=== PATIENT | male | born 1950 | race Caucasian/White ===

== ENCOUNTER → 2016-09-25 11:55 | Outpatient (CLI) | payer MEDICARE ==
[~2016-09-25 11:55] MED LIST: BAYER CHEWABLE81 MG PO; ELIQUIS5 MG PO; INDOCIN25 MG PO; NEXIUM20 MG PO; PLAVIX75 MG PO; PRINIVIL20 MG PO; SORINE80 MG PO; TOPROL XL50 MG PO; VYVANSE20 MG PO
[2016-10-25 08:19] VITALS: BMI 27.8
== END | disposition home or self-care (01) ==
LOC: D.US 11:55
DX: R22.42 Localized swelling, mass and lump, left lower limb (principal); M79.605 Pain in left leg

== ENCOUNTER 2016-10-17 12:01 | Outpatient (CLI) | payer MEDICARE ==
[~2016-10-17] VITALS: Ht 182.9 cm; Wt 92.7 kg
--- NOTE | ~2016-10-17 | HEMODYNAMI ---
PATIENT:NORI PRATT 3RD MEDICAL RECORD: [id number] : 46 LOCATION:[facility]I ADMISSION DATE: 10/17/16 Generatedon:10/17/201614:44 Patient name: NORI PRATT Patient #: [id number] SSN: [id number] : 1950 Date of study: 10/17/2016 Page: Of Hemodynamic Procedure Report Patient Data Patient Demographics Procedure consent was obtained First Name: NORI Gender: Male Last Name: TERENCE : 1950 Middle Initial: MOLLY 3RD Age: 66 year(s) Patient #: [id number] Race: SSN: [id number] Additional ID: [id number] Contact details Address: [address] [place] [address] State: [place] City: [facility] [place] Zip code: [address] Past Medical History Allergies Allergen Reaction Date Comments Reported Other allergy 10/17/2016 Sulfa, Morphine Admission Admission Data Admission Date: 10/17/2016 Admission Time: 12:01 Arrival Date: 10/17/2016 Arrival Time: 13:30 Admit Source: Other Insurance Payor: Medicare Height (in.): 72 BSA: 2.18 (m2) Height (cm.): 182.88 BMI: 28.62 (kg/m2) Weight (lbs.): 211 Weight (kg.): 95.71 Lab Results Lab Result Date: 10/17/2016 Lab Result Time: 0:00 Biochemistry Name Units Result Min Max BUN mg/dl 23 --(----)-* 7 18 Creatinine mg/dl 1.2 --(---*)-- 0.6 1.3 CBC Name Units Result Min Max Hemoglobin g/dl 17.6 --(----)*- 13.5 17.5 Procedure Procedure Types Cath Procedure Diagnostic Procedure [facility] w/Coronaries PCI Procedure Coronary Stent Initial Procedure Description Procedure Date Procedure Date: 10/17/2016 Procedure Start Time: 14:19 Procedure End Time: 14:40 Procedure Staff Name Function Deon Franks MD Performing Physician Stephane Clifton RT Scrub Antoinette Pleitez RN Nurse Dee Morataya RT Monitor Procedure Data Cath Procedure Fluoroscopy Diagnostic fluoroscopy Total fluoroscopy Time: 3.9 time: 3.9 min min Diagnostic fluoroscopy Total fluoroscopy dose: 925 dose: 925 mGy mGy Contrast Material Contrast Material Type Amount (ml) Isovue 370 102 Entry Location Entry Primary Successful Side Size Upsize Upsize Entry Closure Succes sful Closure Location (Fr) 1 (Fr) 2 (Fr) Remarks Device Remarks Femoral Right 5 Fr 6 Fr Exoseal artery Short Estimated blood loss: 5 ml Diagnostic catheters Device Type Used For End Catheter Placement Cordis 5Fr JL 4.0 Left Coronary Catheter (MP) Angiography Cordis 5Fr 3DRC Catheter Right Coronary (MP) Angiography Cordis 5Fr Pigtail LV Angiography Catheter (MP) Procedure Complications No complications Procedure Medications Medication Administration Route Dosage Oxygen NC 2 l/min Heparin Flush Bag added to field 2 bags (1000units/500ml NS) Lidocaine 2% added to field 20 Benadryl I.V. 50 mg Versed I.V. 1 mg Fentanyl I.V. 50 mcg Fentanyl I.V. 25 mcg Heparin Bolus I.V. 9000 units Plavix P.O. 600 mg Hemodynamics Rest BSA: 2.18 (m2) HGB: 17.6 (g/dl) O2 Consumption: Estimated: 291.53 (ml/min) O2 Co nsumption indexed: Estimated:133.73 (ml/min/m) Heart Rate: 117 (bpm) Pressure Samples Time Site Value (mmHg) Purpose Heart Use Rate(bpm) 14:27 LV 99/8,20 Snapshot 119 14:27 AO 75/54(63) Pullback 104 14:27 LV 87/-1,9 Pullback 104 Gradients Valve Time Site 1 Site 2 Mean SEP/DFP Peak To Heart Use (mmHg) (sec/min) Peak Rate (mmHg) (bpm) Aortic 14:27 LV AO 15 12 12 104 87/-1,9 75/54(63) Calculations Valve P-P Mean Valve Index Valve Source Name Gradient Area Flow (cm2) Aortic 12 15 12 15 Snapshots Pre Cath Intra NCS Post Cath Vital Signs Time Heart Resp SPO2 NIBP Rhythm Pain Sedation Rate (ipm) (%) (mmHg) Status Level (bpm) 14:07:26 99 18 99 106/51(83) A-Flutter 0 (11) 10(A) , No pain 14:11:30 116 27 100 102/79(93) A-Flutter 0 (11) 10(A) , No pain 14:15:31 102 24 95 103/83(90) A-Flutter 0 (11) 10(A) , No pain 14:19:35 115 16 96 100/75(92) A-Flutter 0 (11) 9(A) , No pain 14:23:39 113 20 95 97/73(87) A-Flutter 0 (11) 9(A) , No pain 14:27:43 109 18 95 88/71(81) A-Flutter 0 (11) 9(A) , No pain 14:31:44 105 19 95 96/69(86) A-Flutter 0 (11) 9(A) , No pain 14:35:48 109 19 95 92/68(78) A-Flutter 0 (11) 9(A) , No pain 14:39:50 100 18 95 88/72(81) A-Flutter 0 (11) 10(A) , No pain 14:41:50 113 16 97 93/81(90) A-Flutter 0 (11) 10(A) , No pain Medications Time Medication Route Dose Verified Delivered Reason Notes Effectiveness by by 14:08:12 Oxygen NC 2 Deon Antoinette Per physician l/min Nehemiah Pleitez RN 14:08:20 Heparin Flush added 2 Deon Deon used for Bag to bags Nehemiah Franks MD procedure (1000units/500ml field NS) 14:08:26 Lidocaine 2% added 20ml Deon Deon used for to vial Nehemiah Franks MD procedure field 14:08:32 Benadryl I.V. 50 mg Deon Antoinette Per physician Nehemiah Pleitez RN 14:17:09 Versed I.V. 1 mg Deon Antoinette for sedation Nehemiah Pleitez RN 14:17:15 Fentanyl I.V. 50 Deon Antoinette for sedation mcg Nehemiah Pleitez RN 14:19:55 Fentanyl I.V. 25 Deon Antoinette for sedation mcg Nehemiah Pleitez RN 14:31:54 Heparin Bolus I.V. 9000 Deon Antoinette for dose units Nehemiah Pleitez RN anticoagulation verified wtih dr franks 14:41:20 Plavix P.O. 600 Deon Zelayaca for mg Nehemiah Pleitez RN antiplatelet therapy Procedure Log Time Note 13:50:21 Stephane Suit RT(R) sent for patient. Start room use. 13:52:45 Informed consent obtained and on chart 13:53:01 Admit Source: Other 13:53:12 Arrival Date: 10/17/2016 1:30:00 PM 13:53:25 Insurance Payor : Medicare 13:53:36 Patient Height : 182.88 inches 13:53:43 Patient Weight : 95.71 lbs 14:00:33 Time tracking: Regular hours 14:00:37 Plan of Care:Hemodynamics will remain stable., Cardiac rhythm will remain stable., Comfort level will be maintained., Respiratory function will remain adequate., Patient/ family verbilizes understanding of procedure., Procedure tolerated without complication., Recovers from procedure without complications.. 14:00:42 Patient received from Outpatients to [facility] 1 Alert and oriented. Tansferred to table in Supine position. 14:00:43 Warm blankets applied, and alice hugger turned on for patient comfort. 14:00:43 Correct patient and procedure confirmed by team. 14:00:44 ECG and BP/O2 sat monitors applied to patient. 14:06:17 Vital chart was started 14:08:12 Oxygen 2 l/min NC was given by Antoinette Pleitez RN; Per physician; 14:08:20 Heparin Flush Bag (1000units/500ml NS) 2 bags added to field was given by Deon Franks MD; used for procedure; 14:08:26 Lidocaine 2% 20ml vial added to field was given by Deon Franks MD; used for procedure; 14:08:32 Benadryl 50 mg I.V. was given by Antoinette Pleitez RN; Per physician; 14:09:46 Baseline sample Acquired. 14:09:50 Rhythm: atrial flutter 14:09:51 Full Disclosure recording started 14:10:10 H&P Date Dictated: 09/26/2016 Within 30 days and on chart., H&P Addendum completed by physician on day of procedure. (MUST COMPLETE FOR ALL OUTPATIENTS). 14:10:12 Pre-procedure instructions explained to patient. 14:10:12 Pre-op teaching completed and patient verbalized understanding. 14:10:13 Family in waiting room. 14:10:15 Patient NPO since Midnight. 14:10:32 Patient allergic to Other allergySulfa, Morphine 14:10:52 Is the patient allergic to Iodine/contrast media? No. 14:10:53 Was the patient premedicated? No 14:11:08 Is patient on blood thinner?No 14:11:15 Patient diabetic? No. 14:11:25 Previous problem with sedation/anesthesia? No ? 14:11:39 Snore? Yes 14:11:48 Sleep apnea? No 14:11:49 Deviated septum? No 14:11:49 Opens mouth fully? Yes 14:11:50 Sticks out tongue? Yes 14:11:52 Airway obstruction? No ? 14:11:55 Dentures? Yes ? 14:14:02 Pre procedure: right dorsailis pedis pulse 1+ Palpable, but thready & weak; easily obliterated 14:14:05 Patient pain scale 0/10 ?. 14:14:24 IV patent on arrival in left wrist with 0.9% NaCl at [facility]. 14:16:07 Lab Result : BUN 23 mg/dl 14:16:07 Lab Result : Creatinine 1.2 mg/dl 14:16:07 Lab Result : Hemoglobin 17.6 g/dl 14:16:12 Lab results completed and on chart. 14:16:16 Right groin area was prepped with chlora-prep and draped in sterile fashion 14:16:17 Alarms reviewed by R. N. 14:16:17 Sharps counted by scrub and verified by R.N. 14:16:18 Physician arrived 14:16:18 --------ALL STOP TIME OUT------ 14:16:19 Final Timeout: patient, procedure, and site verified with staff and physician. All members of the team are in agreement. 14:16:20 Right groin site verified by team. 14:16:23 Physical assessment completed. ASA score P 2 - A patient with mild systemic disease as per Deon Franks MD. 14:16:26 Sedation plan: IV Moderate Sedation Versed, Fentanyl 14:16:28 Zero performed for pressure channel P1 14:16:40 Use device set Femoral Dx 14:16:41 Acist Syringe opened to sterile field. 14:16:41 Bag Decanter opened to sterile field. 14:16:42 Cardinal Cath Pack opened to sterile field. 14:16:42 Terumo 5Fr [place] Sheath opened to sterile field. 14:16:42 St Gerardo 260cm J .035 wire opened to sterile field. 14:16:43 Acist Hand Control opened to sterile field. 14:16:44 Acist Manifold opened to sterile field. 14:16:44 Cordis Infinity 5Fr Multipack catheter opened to sterile field. 14:16:45 Tegaderm 4 x 4 opened to sterile field. 14:17:09 Versed 1 mg I.V. was given by Antoinette Pleitez RN; for sedation; 14:17:15 Fentanyl 50 mcg I.V. was given by Antoinette Pleitez RN; for sedation; 14:18:20 Procedure started. 14:19:03 Local anesthetic to right femoral artery with Lidocaine 2% by Deon Franks MD.INITIAL ACCESS ONLY 14:19:55 Fentanyl 25 mcg I.V. was given by Antoinette Pleitez RN; for sedation; 14:21:07 A 5 Fr sheath was inserted into the Right Femoral artery 14:21:34 A Cordis 5Fr JL 4.0 Catheter (MP) was advanced over the wire and used for Left Coronary Angiography. 14:22:36 LCA angiography performed. 14::39 Injector settings: Ml/sec: 3, Volume: 6, 14:23:34 Catheter removed. 14:23:39 A Cordis 5Fr 3DRC Catheter (MP) was advanced over the wire and used for Right Coronary Angiography. 14:25:06 RCA angiography performed. 14:25:10 Injector settings: Ml/sec: 3, Volume: 6, 14:25:40 Catheter removed. 14:25:46 A Cordis 5Fr Pigtail Catheter (MP) was advanced over the wire and used for LV Angiography. 14:27:14 LV hemodynamics recorded. 14:27:15 LV gram done using LONG 14:27:18 Injector settings: Ml/sec: 5, Volume: 15, 14:27:36 EF : 35 % 14:27:59 Catheter removed. 14:28:01 Proceeding to intervention. 14:28:50 Herring BMW Commerce 2 J-tip 300cm 0.014 guide wir opened to sterile field. 14:28:51 SmartPay Jieyin BasixCompak Inflation Kit opened to sterile field. 14:28:51 Terumo 6Fr [place] Sheath opened to sterile field. 14:29:00 High Pressure Extension Tubing (Nehemiah) opened to sterile field. 14:29:57 Cordis 6FR XBLAD 3.5 guide catheter opened to sterile field. 14:30:06 Sheath upsized to a 6 Fr Short. 14:30:36 6 Fr xblad 3.5 guide catheter was inserted over the wire 14:30:43 bmw wire advanced. 14:31:54 Heparin Bolus 9000 units I.V. was given by Antoinette Pleitez RN; for anticoagulation; dose verified wtih dr franks 14:31:56 Wire advanced across lesion. 14:34:53 Inflation Number: 1 A Fashion Projecttronic Integrity 2.75 X 18 stent was prepped and advanced across the Mid LAD. The stent was deployed at 16 ALIZE for 0:10 (min:sec). 14:36:22 Stent catheter was removed intact over wire. 14:36:23 Wire removed. 14:36:23 Guide catheter removed. 14:37:54 Cordis 6Fr Exoseal opened to sterile field. 14:38:07 Sheath removed intact; hemostasis achieved with Exoseal to the Right Femoral artery. 14:38:08 Procedure ended.(Physican Out) 14:39:38 Fluoroscopy time 03.90 minutes. 14:39:52 Flurop Dose total: 925 14:39:52 Fluoroscopy dose: 925 mGy 14:40:05 Contrast amount:Isovue 370 102ml. 14:40:06 Sharps counted by scrub and verified by R.N. 14:40:11 Insertion/operative site no bleeding no hematoma. 14:40:13 Post-op/insertion site Right Femoral artery dressed using a 4 x 4 and Tegaderm. 14:40:16 Post right femoral artery:stable 14:40:18 Post Procedure Pulses reassessed and unchanged 14:40:20 Post procedure rhythm: unchanged. 14:40:23 Estimated blood loss: 5 ml 14:40:24 Post procedure instruction explained to patient.Patient verbalizes understanding. 14:40:24 Patient needs reinforcement of post procedure teaching. 14:40:32 Procedure type changed to Cath procedure, Diagnostic procedure, LHC, LHC w/Coronaries, PCI procedure, Coronary Stent Initial 14:40:32 Procedure and supply charges have been captured, reviewed, submitted and are correct. 14:40:36 Procedure Complication : No complications 14:40:38 Vital chart was stopped 14:40:38 See physician's report for complete and final results. 14:40:43 Report given to Post Procedure Room. 14:40:47 Patient transfered to Post Procedure Room with Stretcher. 14:40:48 Procedure ended. 14:40:48 Full Disclosure recording stopped 14:41:00 ACC-PCI Only Patient was given prescriptions, or instructed by Deon Franks MD to start/continue the following medications upon discharge: Plavix 14:41:02 End room use (Document Last) 14:41:20 Plavix 600 mg P.O. was given by Antoinette Pleitez RN; for antiplatelet therapy; Intervention Summary Intervention Notes Time ActionType Lesion and Equipment Action# Pressure Duration Attributes Used 14:34:53 Place stent Mid LAD Medtronic 1 16 00:10 Integrity 2.75 X 18 stent Device Usage Item Name Manufacture Quantity Catalog Hospital Part Current Minimal Lot# / Number Charge Number Stock Stock Serial# Code Acist Acist 1 18138 133880 738851 248989 20 Syringe Medical Systems Inc Bag Microtek 1 2002S 900817 34809 476560 5 DecSnap Fitness Medical Inc. Cardinal Cardinal 1 [id number] 507292 21746 055264 5 Cath Pack Health Terumo 5Fr Terumo 1 [id number] 434596 689124 159431 [address] Gerardo 1 168414 342555 118843 274474 30 260cm J .035 wire Acist Hand Acist 1 13936 532253 098593 034787 5 Control Medical Systems Inc Acist Acist 1 36565 958605 295925 231764 5 Manifold Medical Systems Inc Cordis Cardinal 1 [id number] 673087 00541 754261 30 Infinity Health 5Fr Multipack catheter Tegaderm 4 3M 1 1626W 704541 759044 768727 5 x 4 Cordis 5Fr Cardinal 1 463758 5 JL 4.0 Health Catheter (MP) Cordis 5Fr Cardinal 1 018457 5 3DRC Health Catheter (MP) Cordis 5Fr Cardinal 1 401383 5 Pigtail Health Catheter (MP) Herring BMW Herring 1 [id number] 951625 451339 264463 5 Commerce 2 Vascular J-tip 300cm 0.014 guide wir Merit Merit 1 UL7339 477327 226120 649296 15 BasixCompak Medical Inflation Kit Terumo 6Fr Terumo 1 [id number] 015359 674917 792235 40 [place] Sheath High Merit 1 [id number] 940727 77984 105871 10 Pressure Medical Extension Tubing (Franks) Cordis 6FR Cardinal 1 [id number] 227508 537329 247294 10 XBLAD 3.5 Health guide catheter Medtronic Medtronic 1 [id number] 936009 472057 326893 8 [id number] Integrity 2.75 X 18 stent Cordis 6Fr Cardinal 1 EX600 824540 549493 712056 [address] [facility] Health Signature Audit [place] Stage Time Signature Unsigned Intra-Procedure 10/17/2016 Dee Morataya 2:44:24 PM RT(R) Signatures Monitor : Dee Morataya RT Signature : Date : Time : [address] [address]
[2016-10-17] MEDS ORDERED: TOPROL XL50 MG PO (13:22)
[2016-10-17] MEDS ORDERED: ELIQUIS5 MG PO (13:23)
[2016-10-17] MEDS ORDERED: INDOCIN25 MG PO (13:24)
[2016-10-17] MEDS ORDERED: SORINE80 MG PO (13:24)
[2016-10-17] MEDS ORDERED: VYVANSE20 MG PO (13:25)
[2016-10-17] MEDS ORDERED: PRINIVIL20 MG PO (13:26)
[2016-10-17 13:27] VITALS: BP 154/128; Ht 182.9 cm; Wt 92.7 kg
[2016-10-17] MEDS ORDERED: NEXIUM20 MG PO (13:41)
[2016-10-17 14:06] LABS: BASOPHILS 0.3 % (0.0-2.0); EOSINOPHILS 0.7 % (0-7); HEMATOCRIT 52.1 % (42.0-54.0); HEMOGLOBIN 17.6 g/dL (13.5-17.5); IMMATURE GRANULOCYTES 0.7 % (0-5); LYMPHOCYTES 16.1 % (15-50); MCH 30.7 pg (26.0-34.0); MCHC 33.8 g/dL (31.0-37.0); MCV 90.8 fL (80.0-100.0); MONOCYTES 10.4 % (2-11); NEUTROPHILS 71.8 % (40-80); PLATELET COUNT 252 10x3/uL (130-400); RBC 5.74 10x6/uL (4.20-6.10); RDW 12.6 % (11.5-14.5); WBC 10.9 10x3/uL (4.8-10.8)
[2016-10-17 14:08] LABS: ANION GAP 13.1 mmol/L (8-16); CALCIUM 9.1 mg/dL (8.5-10.1); CARBON DIOXIDE 26.6 mmol/L (21.0-32.0); CREATININE - SERUM 1.2 mg/dL (0.6-1.3); POTASSIUM - SERUM 4.7 mmol/L (3.5-5.1)
[2016-10-17] MEDS ORDERED: BAYER CHEWABLE81 MG PO (14:58)
[2016-10-17] MEDS ORDERED: PLAVIX75 MG PO (14:58)
--- NOTE | 2016-10-17 15:13 | NUR ---
1510 PATIENT AWAKE, LYING FLAT. AFIB RATE 115 WNO C/O CHEST PAIN. PULSES PALP X4. ROOM AIR WNO DISTRESS. R GROIN 6F EXOSEAL C/D/I WITH NO HEMATOMA OR BLEEDING. SIPPING SODA AND EATING CASSIDY CRACKERS. FAMILY AT BEDSIDE. REPORT CALLED TO [facility].
--- NOTE | 2016-10-17 15:31 | NUR ---
TRANSFERRED VIA STRETCHER TO OPS ROOM 12 BY HANGER OFF TEAM.
--- NOTE | 2016-10-17 16:35 | NUR ---
1545 TO 6686 BY FAMILY ITALIA WITH PT. PLACED ON DATASCOPE MONITOR, TELEMENTARY PLACED. PT. C/O HEARTBURN, HOB ELEVATED, DR. RIZZO NOTIFIED, ORDER RECEIVED.
--- NOTE | 2016-10-17 16:37 | NUR ---
1620 PT DOSING AT PRESENT. FAMILY REMAINS AT SIDE.
--- NOTE | 2016-10-31 13:15 | OP ---
PATIENT NAME: NORI PRATT 3RD MEDICAL RECORD: [id number] :46 LOCATION:D.CAT ADMISSION DATE: SURGEON: RILEY RIZZO M.D. DATE OF OPERATION: 10/17/2016 CATHETERIZATION REPORT REFERRING PHYSICIAN: Dr. Riley Funez. PROCEDURES PERFORMED: 1. Selective coronary angiography. 2. Left heart catheterization with ventriculogram. 3. PTCA and stent placed in LAD. INDICATION: A 66-year-old gentleman presents with symptoms of angina. Recent Cardiolite stress test revealed anterior wall ischemia. EQUIPMENT USED: Diagnostic 5-Montserratian JL4, Brian right, pigtail catheter. INTERVENTION: A 6-Montserratian XB LAD guide, BMW guide wire, 2.75 x 18 mm Integrity stent. TECHNIQUE: A 5-Montserratian sheath was inserted in retrograde fashion in the right common femoral artery. Next, selective coronary angiography was performed in standard 5-Montserratian JL4 and Brian right. Left heart catheterization was performed using pigtail catheter. CORONARY ANATOMY: 1. Left main: Left main trunk is moderate in caliber. It gives rise to the LAD and circumflex. There is no obstruction. 2. LAD: This is a moderate caliber vessel extending to the apex. The proximal vessel has an eccentric 80% stenosis. 3. Circumflex: This vessel is moderate in caliber. It supplies the lateral branch proximal segment. The circumflex and lateral branch have mild irregularities, but nothing worse than 20%. 4. Right coronary: This vessel is large in caliber and dominant. It is a smooth-walled vessel and angiographically normal. 5. Left ventricle: Left ventricle is normal in size. There is global hypokinesis noted. Estimated ejection fraction is in the order of 35% to 40%. DESCRIPTION OF INTERVENTION: A 6-Montserratian sheath was inserted in retrograde fashion in the right common femoral artery. Next, 100 units per kilogram of heparin was infused. A 6-Montserratian XB LAD guide was advanced and engaged in the left main coronary artery. Next, a BMW guide wire was placed in the distal vessel. A 2.75 x 18 mm Integrity stent was placed across the stenosis and deployed at 16 atmospheres. Injection shows stent to be widely patent with 0% residual stenosis. There is marked improvement in distal flow. At this point, the wire and guide were removed. IMPRESSION: Successful percutaneous transluminal coronary angioplasty and stenting to the LAD with 0% residual stenosis. TRANSINT:[id number] Voice Confirmation ID: [id number] DOCUMENT ID: [id number] OPERATIVE REPORT [id number] NORI PRATT 3RD RILEY RIZZO M.D. at 1315 CC: [id number] DICTATION DATE: 10/17/16 1445 SULF[employer]IC [employer]ANT SUPERVISOR: 10/17/16 2019 [facility] CLI 10/17/[address] [address]
== END 2016-10-17 19:30 | disposition home or self-care (01) ==
LOC: D.CATH 12:01
PROVIDERS: Internal Medicine Cardiovascular Disease
DX: I48.92 Unspecified atrial flutter (principal); Z82.49 Family history of ischemic heart disease and other diseases of the circulatory system; I10 Essential (primary) hypertension

== ENCOUNTER 2016-10-25 07:36 | Outpatient (CLI) | payer MEDICARE ==
[~2016-10-25] VITALS: Ht 182.9 cm; Wt 93.2 kg
--- NOTE | ~2016-10-25 | HEMODYNAMI ---
PATIENT:NORI PRATT 3RD MEDICAL RECORD: [id number] : 46 [id number] ADMISSION DATE: 10/25/16 Generatedon:10/25/201610:27 Patient name: NORI PRATT Patient #: [id number] SSN: [id number] : 1950 Date of study: 10/25/2016 Page: Of Hemodynamic Procedure Report Patient Data Patient Demographics Procedure consent was obtained First Name: NORI Gender: Male Last Name: TERENCE : 1950 Middle Initial: MOLLY 3RD Age: 66 year(s) Patient #: [id number] Race: SSN: [id number] Additional ID: [id number] Contact details Address: [address] [place] [address] State: [place] City: [facility] Zip code: [address] Past Medical History Allergies Allergen Reaction Date Comments Reported Other allergy 10/17/2016 Sulfa, Morphine Admission Admission Data Admission Date: 10/25/2016 Admission Time: 7:36 Lab Results Lab Result Date: 10/25/2016 Lab Result Time: 0:00 Biochemistry Name Units Result Min Max BUN mg/dl 23 --(----)-* 7 18 Creatinine mg/dl 1.1 --(--*-)-- 0.6 1.3 Procedure Procedure Types Cath Procedure Diagnostic Procedure Cardioversion Miscellaneous Procedures Moderate Sedation up to 15 minutes Procedure Description Procedure Date Procedure Date: 10/25/2016 Procedure Start Time: 10:00 Procedure End Time: 10:05 Procedure Staff Name Function Deon Cerna MD Performing Physician Evaristo Todd RT Business Solutions Architect Antoinette Pleitez RN Nurse Dee Morataya RT Monitor Procedure Data Cath Procedure Fluoroscopy Diagnostic fluoroscopy Total fluoroscopy Time: 0 time: 0 min min Diagnostic fluoroscopy Total fluoroscopy dose: 0 dose: 0 mGy mGy Contrast Material Contrast Material Type Amount (ml) Isovue 370 0 Estimated blood loss: 5 ml Procedure Complications No complications Procedure Medications Medication Administration Route Dosage Oxygen NC 2 l/min Refer to Anesthesia Notes for Sedation Medications Hemodynamics Rest Heart Rate: 92 (bpm) Snapshots Pre Cath Intra NCS Post Cath Vital Signs Time Heart Resp SPO2 NIBP Rhythm Pain Sedation Rate (ipm) (%) (mmHg) Status Level (bpm) 9:50:39 124 21 100 103/73(89) A-Flutter 0 (11) 10(A) , No pain 9:54:45 90 15 100 101/77(90) A-Flutter 0 (11) 10(A) , No pain 9:58:49 125 14 100 98/78(91) A-Flutter 0 (11) 10(A) , No pain 10:03:48 65 15 100 84/63(75) SB 0 (11) 6(A) , No pain 10:06:19 69 27 100 95/64(69) SB 0 (11) 6(A) , No pain 10:12:59 58 26 100 96/76(89) SB 0 (11) 6(A) , No pain 10:14:45 57 22 100 101/65(98) SB 0 (11) 6(A) , No pain 10:20:13 53 23 100 95/71(81) SB 0 (11) 8(A) , No pain 10:24:48 53 20 98 87/62(74) SB 0 (11) 10(A) , No pain Medications Time Medication Route Dose Verified Delivered Reason Notes Effectivene ss by by 9:56:02 Oxygen NC 2 Deon Antoinette Per l/min Nehemiah Pleitez RN physician 9:56:09 Refer to Deon Deon for Anesthesia Nehemiah Cerna MD sedation Notes for Sedation Medications Procedure Log Time Note 9:35:24 Evaristo Todd RT(R) sent for patient. Start room use. 9:35:27 Time tracking: Regular hours 9:35:31 Plan of Care:Hemodynamics will remain stable., Cardiac rhythm will remain stable., Comfort level will be maintained., Respiratory function will remain adequate., Patient/ family verbilizes understanding of procedure., Procedure tolerated without complication., Recovers from procedure without complications.. 9:46:05 Patient arrived from Outpatients to [facility] 1. Patient remains on bed/stretcher for procedure. 9:46:06 Warm blankets applied, and alice hugger turned on for patient comfort. 9:46:07 Correct patient and procedure confirmed by team. 9:46:08 Signed procedure consent form obtained from patient. 9:46:09 ECG and BP/O2 sat monitors applied to patient. 9:49:35 Vital chart was started 9:49:36 Baseline sample Acquired. 9:49:42 Rhythm: atrial flutter 9:49:58 Full Disclosure recording started 9:50:10 H&P Date Dictated: 10/23/2016 Within 30 days and on chart., H&P Addendum completed by physician on day of procedure. (MUST COMPLETE FOR ALL OUTPATIENTS). 9:50:11 Pre-procedure instructions explained to patient. 9:50:11 Pre-op teaching completed and patient verbalized understanding. 9:50:13 Family in waiting room. 9:50:15 Patient NPO since Midnight. 9:50:55 Is the patient allergic to Iodine/contrast media? No. 9:50:57 Was the patient premedicated? No 9:53:13 Is patient on blood thinner?Yes 9:53:18 ACC The patient was administered the following blood thiners within the last 24 hours: ACCPlavix 9:53:20 Patient diabetic? No. 9:53:24 Previous problem with sedation/anesthesia? No ? 9:53:25 Snore? Yes 9:53:26 Sleep apnea? No 9:53:27 Deviated septum? No 9:53:28 Opens mouth fully? Yes 9:53:28 Sticks out tongue? Yes 9:53:30 Airway obstruction? No ? 9:53:32 Dentures? No ? 9:53:36 Pre procedure: right dorsailis pedis pulse 1+ Palpable, but thready & weak; easily obliterated 9:53:41 Patient pain scale 0/10 ?. 9:54:35 IV patent on arrival in left forearm with 0.9% NaCl at KVO. 9:54:50 Lab Result : BUN 23 mg/dl 9:54:50 Lab Result : Creatinine 1.1 mg/dl 9:54:54 Lab results completed and on chart. 9:55:00 Mid Chest area was prepped with chlora-prep and draped in sterile fashion 9:55:00 Alarms reviewed by R. N. 9:55:01 Sharps counted by scrub and verified by RElizabethN. 9:55:59 Dr Lazo present and monitoring patient for TIVA. 9:56:02 Oxygen 2 l/min NC was given by Antoinette Pleitez RN; Per physician; 9:56:04 Quick combo pads placed on patients chest and back. 9:56:08 Defibrillator synced and charged to 200 Joules. 9:56:09 Refer to Anesthesia Notes for Sedation Medications was given by Deon Cerna MD; for sedation; 9:59:17 Physician arrived 9:59:18 --------ALL STOP TIME OUT------ 9:59:19 Final Timeout: patient, procedure, and site verified with staff and physician. All members of the team are in agreement. 9:59:22 Mid Chest site verified by team. 9:59:24 Physical assessment completed. ASA score P 2 - A patient with mild systemic disease as per Deon Cerna MD. 9:59:47 Sedation plan: TIVA Propofol 10:00:05 Defibrillator synced and charged to 100 Joules. 10:00:30 Procedure started. 10:02:46 Shock delivered. 10:03:04 Patient cardioverted to sinus rhythm . 10:03:58 Procedure ended.(Physican Out) 10:04:12 Fluoroscopy time 00.00 minutes. 10:04:29 Fluoroscopy dose: 0 mGy 10:04:29 Flurop Dose total: 0 10:04:35 Contrast amount:Isovue 370 0ml. 10:04:45 Sharps counted by scrub and verified by R.N. 10:04:49 Insertion/operative site no bleeding no hematoma. 10:04:54 Post procedure rhythm: sinus rhythm 10:04:56 Estimated blood loss: 5 ml 10:04:58 Post procedure instruction explained to patient.Patient verbalizes understanding. 10:04:58 Patient needs reinforcement of post procedure teaching. 10:05:03 Procedure and supply charges have been captured, reviewed, submitted and are correct. 10:05:08 Procedure Complication : No complications 10:05:10 Vital chart was stopped 10:05:10 See physician's report for complete and final results. 10:05:15 Report given to Post Procedure Room. 10:05:18 Patient transfered to Post Procedure Room with Stretcher. 10:05:20 Procedure ended. 10:05:20 Full Disclosure recording stopped 10:05:25 End room use (Document Last) 10:11:29 Procedure type changed to Cath procedure, Diagnostic procedure, Cardioversion, Miscellaneous Procedures, Moderate Sedation up to 15 minutes Signature Audit [place] Stage Time Signature Unsigned Intra-Procedure 10/25/2016 Dee Morataya 10:27:48 AM RT(R) Signatures Monitor : Dee Morataya RT Signature : Date : Time : [place] [id number] [place] [address]
[2016-10-25 08:19] VITALS: BP 100/74; Ht 182.9 cm; Wt 93.2 kg
[2016-10-25 09:17] LABS: ANION GAP 14.7 mmol/L (8-16); CALCIUM 8.9 mg/dL (8.5-10.1); CARBON DIOXIDE 25.9 mmol/L (21.0-32.0); CREATININE - SERUM 1.1 mg/dL (0.6-1.3); POTASSIUM - SERUM 4.6 mmol/L (3.5-5.1)
[2016-10-25 09:20] LABS: INR 1.13 (0.85-1.17); PROTIME 14.4 SECONDS (11.6-15.0)
[2016-10-25 10:26] LABS: HEMOGLOBIN 16.8 g/dL (13.5-17.5); LYMPHOCYTES 30.8 % (15-50); MCH 29.8 pg (26.0-34.0); MCHC 33.6 g/dL (31.0-37.0); MCV 88.8 fL (80.0-100.0); MEAN PLATELET VOLUME 9.7 fL (7.4-10.4); PLATELET COUNT 267 10x3/uL (130-400); RBC 5.63 10x6/uL (4.20-6.10); RDW 12.6 % (11.5-14.5); WBC 6.7 10x3/uL (4.8-10.8)
--- NOTE | 2016-10-25 10:42 | NUR ---
HR NSR 68 CHEST PAIN DENIED. BP 86/65 NS INFUSING ORDERED. NAUSEA DENIED. TOLERATING ORAL FLUIDS. WILL MONITOR
--- NOTE | 2016-10-25 11:34 | NUR ---
PIV REMOVED FROM LEFT ARM WITH DRESSING APPLIED. PATIENT REMAINS NSR WITH CHEST PAIN DENIED UP TO GET DRESSED FOR DISCHARGE HOME
--- NOTE | 2016-10-25 11:38 | NUR ---
VERBAL AND WRITTEN DISCHARGE GONE OVER WITH PATIENT AND ALL VERBALIZED UNDERSTANDING. LEFT VIA WC FOR TRANSPORT HOME.
[2016-10-25 18:43] LABS: BASOPHILS 0.5 % (0.0-2.0); EOSINOPHILS 1.6 % (0-7)
--- NOTE | 2016-10-31 13:16 | OP ---
PATIENT NAME: NORI PRATT 3RD MEDICAL RECORD: [id number] :48 LOCATION:D.CAT ADMISSION DATE: SURGEON: RILEY RIZZO M.D. DATE OF OPERATION: 10/25/2016 Cardioversion Note REFERRING PHYSICIAN: Riley Funez MD. PROCEDURE PERFORMED: Cardioversion. INDICATION: A 66-year-old gentleman who presents with persistent atrial flutter. DESCRIPTION: The patient was brought to the manager labor relations. It was confirmed that he is in atrial flutter with variable block. He received propofol for sedation. Once he was adequately sedated, he received 1 discharge of 100 joules. This resulted in mosque of sinus rhythm. He tolerated the procedure well without any complication. IMPRESSION: Successful cardioversion with mosque of sinus rhythm. TRANSINT:[id number] Voice Confirmation ID: [id number] DOCUMENT ID: [id number] RILEY RIZZO M.D. at 1316 CC: [id number] DICTATION DATE: 10/25/16 1006 JEWELRY JOBBER: 10/25/16 1103 [facility] CLI 10/25/16 [id number] [place] [address]
== END 2016-10-25 11:41 | disposition home or self-care (01) ==
LOC: D.CATH 07:36
PROVIDERS: Internal Medicine Cardiovascular Disease
DX: I48.92 Unspecified atrial flutter (principal)

== ENCOUNTER 2017-09-03 11:02 | Outpatient (CLI) | payer MEDICARE ==
[~2017-09-03] VITALS: Ht 182.9 cm; Wt 97.7 kg
--- NOTE | ~2017-09-03 | HEMODYNAMI ---
PATIENT:NORI PRATT 3RD MEDICAL RECORD: [id number] : 46 LOCATION:DElizabethCAT ADMISSION DATE: 09/03/17 Generatedon:09/03/201713:43 Patient name: NORI PRATT Patient #: [id number] SSN: [id number] : 1950 Date of study: 09/03/2017 Page: Of Hemodynamic Procedure Report Patient Data Patient Demographics Procedure consent was obtained First Name: NORI Gender: Male Last Name: TERENCE : 1950 Middle Initial: MOLLY 3RD Age: 67 year(s) Patient #: [id number] Race: SSN: [id number] Additional ID: [id number] Contact details Address: [address] [place] [address] State: [place] City: [facility] Zip code: [address] Past Medical History Allergies Allergen Reaction Date Comments Reported Other allergy 10/17/2016 Sulfa, Morphine Other allergy 09/03/2017 Morpine, Sulfa Admission Admission Data Admission Date: 09/03/2017 Admission Time: 11:02 Admit Source: Other Lab Results Lab Result Date: 09/03/2017 Lab Result Time: 11:55 Biochemistry Name Units Result Min Max BUN mg/dl 15 --(--*-)-- 7 18 Creatinine mg/dl 1.1 --(--*-)-- 0.6 1.3 CBC Name Units Result Min Max Hematocrit % 51.5 --(---*)-- 42 54 Hemoglobin g/dl 17.9 --(----)*- 13.5 17.5 Coagulation Name Units Result Min Max INR units 1.23 --(----)*- 0.85 1.17 PT sec 15 --(---*)-- 11.6 15 Procedure Procedure Types Cath Procedure Diagnostic Procedure Cardioversion Procedure Description Procedure Date Procedure Date: 09/03/2017 Procedure Start Time: 13:25 Procedure End Time: 13:32 Procedure Staff Name Function Deon Cerna MD Performing Physician James Sargent RT Monitor Eddie Jc RN Nurse Ruben Lazo MD Additional personnel Procedure Data Cath Procedure Fluoroscopy Diagnostic fluoroscopy Total fluoroscopy Time: 0 time: 0 min min Diagnostic fluoroscopy Total fluoroscopy dose: 0 dose: 0 mGy mGy Contrast Material Contrast Material Type Amount (ml) Isovue 300 0 Estimated blood loss: 0 ml Procedure Complications No complications Procedure Medications Medication Administration Route Dosage Oxygen NC 6 l/min 0.9% NaCl I.V. 100 ml/hr Refer to Anesthesia Notes for Sedation Medications Hemodynamics Rest HGB: 17.9 (g/dl) Heart Rate: 114 (bpm) Snapshots Pre Cath Intra NCS Post Cath Vital Signs Time Heart Resp SPO2 etCO2 NIBP (mmHg) Rhythm Pain Sedation Rate (ipm) (%) (mmHg) Status Level (bpm) 13:01:13 111 23 96 0 109/91(99) NSR 0 (11) 10(A) , No pain 13:05:19 114 17 99 33.9 111/92(108) NSR 0 (11) 10(A) , No pain 13:09:25 115 16 99 27.9 107/94(106) NSR 0 (11) 10(A) , No pain 13:14:42 106 22 98 12 113/90(105) NSR 0 (11) 10(A) , No pain 13:18:54 75 19 98 27.9 118/90(106) NSR 0 (11) 10(A) , No pain 13:23:06 109 17 98 30.8 121/86(115) NSR 0 (11) 10(A) , No pain 13:27:24 55 18 81 0 87/64(76) NSR 0 (11) 9(A) , No pain 13:31:14 51 24 96 24.1 87/61(71) NSR 0 (11) 9(A) , No pain 13:32:35 49 36 96 31.6 84/60(70) NSR 0 (11) 9(A) , No pain 13:35:50 54 25 95 25.6 Time NSR 0 (11) 9(A) Exceeded , No pain 13:37:08 48 27 96 24.8 121/102(120) NSR 0 (11) 9(A) , No pain 13:42:07 97 29.3 Measuring NSR 0 (11) 9(A) , No pain 13:42:11 97 29.4 No Cuff NSR 0 (11) 9(A) , No pain Medications Time Medication Route Dose Verified Delivered Reason Notes Effectiven ess by by 13:22:54 Oxygen NC 6 Deon Eddie Per l/min Nehemiah Jc RN physician 13:23:05 0.9% NaCl I.V. 100 Deon Eddie Per ml/hr Nehemiah Jc RN physician 13:23:12 Refer to Deonmi Morgan Anesthesia Nehemiah Jc RN Notes for Sedation Medications Procedure Log Time Note 12:19:43 Informed consent obtained and on chart 12:19:47 Admit Source: Other 12:20:04 Diagnostic Cath status Elective 12:20:05 Time tracking: Regular hours 12:20:09 Plan of Care:Hemodynamics will remain stable., Cardiac rhythm will remain stable., Comfort level will be maintained., Respiratory function will remain adequate., Patient/ family verbilizes understanding of procedure., Procedure tolerated without complication., Recovers from procedure without complications.. 12:20:42 H&P Date Dictated: 08/27/2017 Within 30 days and on chart., H&P Addendum completed by physician on day of procedure. (MUST COMPLETE FOR ALL OUTPATIENTS). 12:48:04 Eddie Jc RN sent for patient. Start room use. 12:53:15 Patient received from Pre/Post Procedure Room to CCL 3 Alert and oriented. Tansferred to table in Supine position. 12:53:16 Warm blankets applied, and alice hugger turned on for patient comfort. 12:53:16 Correct patient and procedure confirmed by team. 12:53:21 ECG and BP/O2 sat monitors applied to patient. 12:53:29 Pre-procedure instructions explained to patient. 12:53:30 Pre-op teaching completed and patient verbalized understanding. 12:53:32 Family in waiting room. 12:53:33 Patient NPO since Midnight. 12:53:50 Patient allergic to Other allergyMorpine, Sulfa 12:53:54 Is the patient allergic to Iodine/contrast media? No. 12:53:55 Is patient on blood thinner?Yes 12:53:59 ACC The patient was administered the following blood thiners within the last 24 hours: Eliquis 13:00:05 Vital chart was started 13:00:33 Ruben Lazo MD present and monitoring patient for TIVA. 13:01:24 Baseline sample Acquired. 13:01:31 Rhythm: atrial flutter 13:01:33 Full Disclosure recording started 13:06:05 Quick Combo opened to sterile field. 13:06:22 Patient diabetic? No. 13:06:24 Previous problem with sedation/anesthesia? No ? 13:06:24 Snore? Yes 13:06:25 Sleep apnea? No 13:06:26 Deviated septum? No 13:06:27 Opens mouth fully? Yes 13:06:27 Sticks out tongue? Yes 13:06:29 Airway obstruction? No ? 13:06:31 Dentures? No ? 13:06:58 IV patent on arrival in left hand with 0.9% NaCl at [facility]. 13:08:58 Lab Result : BUN 15 mg/dl 13:08:58 Lab Result : Creatinine 1.1 mg/dl 13:08:58 Lab Result : Hemoglobin 17.9 g/dl 13:08:58 Lab Result : Hematocrit 51.5 % 13:08:58 Lab Result : INR 1.23 units 13:08:58 Lab Result : PT 15 sec 13:09:03 Lab results completed and on chart. 13:09:09 Alarms reviewed by Edi Deleon 13:20:29 Physician arrived 13:20:29 --------ALL STOP TIME OUT------ 13:20:30 Final Timeout: patient, procedure, and site verified with staff and physician. All members of the team are in agreement. 13:20:41 Physical assessment completed. ASA score P 2 - A patient with mild systemic disease as per Deon Cerna MD. 13:20:50 Sedation plan: TIVA Medication:Propofol 13:22:54 Oxygen 6 l/min NC was administered by Eddie Jc RN; Per physician; 13:23:05 0.9% NaCl 100 ml/hr I.V. was administered by Eddie Jc RN; Per physician; 13:23:12 Refer to Anesthesia Notes for Sedation Medications was administered by Eddie Jc RN; ; 13:24:00 Procedure started. 13:25:52 Defibrillator synced and charged to 50 Joules. 13:26:07 Shock delivered. 13:26:11 Patient cardioverted to sinus rhythm . 13:26:25 Procedure ended.(Physican Out) 13:29:41 Fluoroscopy time 00.00 minutes. 13::43 Fluoroscopy dose: 0 mGy 13::43 Flurop Dose total: 0 13:29:46 Contrast amount:Isovue 300 0ml. 13:30:08 Sharps counted by scrub and verified by R.N. 13:30:14 Post Procedure Pulses reassessed and unchanged 13:30:20 Post-procedure physical assessment completed. ASA score P 2 - A patient with mild systemic disease as per Deon Cerna MD. 13:30:24 Post procedure rhythm: sinus rhythm 13:30:28 Estimated blood loss: 0 ml 13:30:29 Post procedure instruction explained to patient.Patient verbalizes understanding. 13:30:30 Patient needs reinforcement of post procedure teaching. 13:31:52 Procedure and supply charges have been captured, reviewed, submitted and are correct. 13:31:54 Procedure Complication : No complications 13:31:55 Vital chart was stopped 13:31:56 See physician's report for complete and final results. 13:31:57 Report given to Pre/Post Procedure Room. 13:32:00 Patient transfered to Pre/Post Procedure Room with Stretcher. 13:32:02 Procedure ended. 13:32:02 Full Disclosure recording stopped 13:32:28 End room use (Document Last) 13:35:59 Vital chart was started 13:43:58 Vital chart was stopped Device Usage Item Manufacture Quantity Catalog Hospital Part Current Minimal Lot# / Name Number Charge Number [facility]# Code [facility] [employer] 1 [id number] Combo Signature Audit [place] Stage Time Signature Unsigned Intra-Procedure 09/03/2017 James Sargent 1:43:54 PM RT(R) Signatures Monitor : James Sargent RT Signature : Date : Time : [facility] [address] [place] [address]
[2017-09-03] MEDS ORDERED: BAYER CHEWABLE81 MG PO (11:55)
[2017-09-03 11:56] VITALS: BP 117/75; Ht 182.9 cm; Wt 97.7 kg
[2017-09-03 12:05] LABS: BASOPHILS 0.5 % (0-2); EOSINOPHILS 1.2 % (0-7); HEMATOCRIT 51.5 % (42.0-54.0); HEMOGLOBIN 17.9 g/dL (13.5-17.5); IMMATURE GRANULOCYTES 0.5 % (0-5); LYMPHOCYTES 34.3 % (15-50); MCH 31.3 pg (26.0-34.0); MCHC 34.8 g/dL (31.0-37.0); MCV 90.2 fL (80.0-100.0); MEAN PLATELET VOLUME 10.2 fL (7.4-10.4); MONOCYTES 14.9 % (2-11); NEUTROPHILS 48.6 % (40-80); PLATELET COUNT 237 10x3/uL (130-400); RBC 5.71 10x6/uL (4.20-6.10); RDW 12.4 % (11.5-14.5); WBC 5.8 10x3/uL (4.8-10.8)
[2017-09-03 12:15] LABS: ANION GAP 13.3 mmol/L (8-16); CREATININE - SERUM 1.1 mg/dL (0.6-1.3); POTASSIUM - SERUM 4.3 mmol/L (3.5-5.1)
[2017-09-03 12:29] LABS: INR 1.23 (0.85-1.17)
--- NOTE | 2017-09-03 13:50 | NUR ---
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 PT IS SLEEPING, AWAKENS TO VERBAL STIMULI. DENIES ANY C/O CHEST DISCOMFORT OR NAUSEA. SINUS BRADYCARDIA WITH RATES 52-58. AT BEDSIDE, CALL LIGHT IN REACH.
--- NOTE | 2017-09-03 14:44 | NUR ---
1415 SANDWICH AND PO FLUIDS SERVED. PT DENIES ANY C/O. SINUS BRADYCARDIA WITH RATE 53. AT BEDSIDE, CALL LIGHT IN REACH.
--- NOTE | 2017-09-03 14:45 | NUR ---
1430 PT LEONID PO FLUIDS WITH NO C/O. SINUS BRADYCARDIA WITH RATE OF 50.
--- NOTE | 2017-09-03 14:45 | NUR ---
1445 BP 101/71. SINUS NAV WITH RATE OF 49. DENIES ANY C/O. CALL LIGHT IN REACH.
--- NOTE | 2017-09-03 15:08 | NUR ---
1500 PT AMBULATED TO THE BATHROOM AND VOIDED QS. IV DC'D WITH CATH INTACT. DENIES ANY C/O AT THIS TIME.
--- NOTE | 2017-09-03 15:45 | NUR ---
1545 PT SITTING UP IN BED, VISITING WITH , AWAITING DR SO HARRIS. DENIES ANY C/O. HAS VOIDED QS AND TOLERATED SANDWICH/ PO FLUIDS WITH NO NAUSEA.
--- NOTE | 2017-09-03 15:55 | NUR ---
1557 DR RIZZO HERE ROUNDING ON PT. INSTRUCTED PT TO STOP TAKING METOPROLOL.PT AND VERBALIZE UNDERSTANDING.
--- NOTE | 2017-09-03 16:19 | NUR ---
1605 DC INSTRUCTIONS REVIEWED WITH PT WHO VERBALIZES UNDERSTANDING. PT ESCORTED TO PRIVATE AUTO VIA WC BY NURSE WITH DRIVING HIM HOME. PT DENIES ANY C/O UPON DC. HAS ALL PERSONAL BELONGINGS.
== END 2017-09-03 16:05 | disposition home or self-care (01) ==
LOC: D.CATH 11:02
PROVIDERS: Internal Medicine Cardiovascular Disease
DX: I48.91 Unspecified atrial fibrillation (principal); Z95.5 Presence of coronary angioplasty implant and graft; Z01.812 Encounter for preprocedural laboratory examination

== ENCOUNTER → 2019-01-12 13:54 | Outpatient (CLI) | payer MEDICARE ==
[2017-09-03 11:56] VITALS: BMI 29.2
== END | disposition home or self-care (01) ==
LOC: D.HCCARDIO 13:54
PROVIDERS: ATTEND Internal Medicine Cardiovascular Disease
DX: I10 Essential (primary) hypertension (principal)

== ENCOUNTER 2020-05-11 11:35 | Day surgery (SDC) | payer MEDICARE ==
[~2020-05-11] VITALS: Ht 182.9 cm; Wt 96.7 kg
--- NOTE | ~2020-05-11 | HEMODYNAMI ---
PATIENT:NORI PRATT 3RD MEDICAL RECORD: [id number] : 46 [id number] ADMISSION DATE: 05/11/20 Generatedon:05/11/202013:16 Patient name: NORI PRATT Patient #: [id number] SSN: [id number] : 1950 Date of study: 05/11/2020 Page: Of Hemodynamic Procedure Report Patient Data Patient Demographics Procedure consent was obtained First Name: NORI Gender: Male Last Name: TERENCE : 1950 Middle Initial: MOLLY 3RD Age: 70 year(s) Patient #: [id number] Race: SSN: [id number] Additional ID: [id number] Contact details Address: [address] [place] [address] State: [place] City: [facility] Zip code: [address] Past Medical History Allergies Allergen Reaction Date Comments Reported Other allergy 10/17/2016 Sulfa, Morphine Other allergy 09/03/2017 Morpine, Sulfa Admission Admission Data Admission Date: 05/11/2020 Admission Time: 11:35 Arrival Date: 05/11/2020 Arrival Time: 13:00 Admit Source: Other Insurance Payor: Private health insurance [facility] #: [id number] Height (in.): 71.65 BSA: 2.17 (m2) Height (cm.): 182 BMI: 28.98 (kg/m2) Weight (lbs.): 211.64 Weight (kg.): 96 Lab Results Lab Result Date: 05/11/2020 Lab Result Time: 0:00 Biochemistry Name Units Result Min Max BUN mg/dl 19 --(----)*- 7 18 Creatinine mg/dl 1 --(--*-)-- 0.6 1.3 eGFR ml/min 78 *-(----)-- 90 120 NONAFRICAN CBC Name Units Result Min Max Hemoglobin g/dl 16.2 --(--*-)-- 13.5 17.5 Procedure Procedure Types Cath Procedure Diagnostic Procedure Cardioversion External Procedure Description Procedure Date Procedure Date: 05/11/2020 Procedure Start Time: 13:06 Procedure End Time: 13:11 Procedure Staff Name Function Deon Cerna MD Performing Physician Dee Morataya RT Monitor Liz Wesley RT Scrub Tal Michelle RN Nurse Georgia Garcia CRNA Additional personnel Procedure Data Cath Procedure Estimated blood loss: 0 ml Procedure Complications No complications Procedure Medications Medication Administration Route Dosage Oxygen etCO2 Nasal cannula 2 l/min Refer to Anesthesia Notes for Sedation Medications Hemodynamics Rest BSA: 2.17 (m2) HGB: 16.2 (g/dl) O2 Consumption: Estimated: 217.58 (ml/min) O2 Consumption indexed: Estimated:100.27 (ml/min/m) Heart Rate: 30 (bpm) Snapshots Pre Cath Intra NCS Post Cath Vital Signs Time Heart Resp SPO2 etCO2 NIBP (mmHg) Rhythm Pain Sedation Rate (ipm) (%) (mmHg) Status Level (bpm) 12:58:45 71 9 98 0 120/85(107) A-Fib 0 (11) 10(A) , No pain 13:03:44 87 21 98 15.7 145/120(133) A-Fib 0 (11) 10(A) , No pain 13:07:49 60 27 95 1.4 75/57(65) SB 0 (11) 9(A) , No pain 13:10:43 48 22 97 28.5 88/68(76) SB 0 (11) 10(A) , No pain Medications Time Medication Route Dose Verified Delivered Reason Notes Effective ness by by 13:00:57 Oxygen etCO2 2 Deon Parada used for Nasal l/min Nehemiah Michelle [employer] teacher cannula 13:01:05 Refer to Deon Parada Anesthesia Nehemiah Michelle RN Notes for Sedation Medications Procedure Log Time Note 12:35:27 Arrival Date: 05/11/2020 1:00:00 PM 12:35:42 Admit Source: Other 12:35:45 Insurance Payor : Private health insurance 12:42:59 Patient Height : 71.65 inches 12:43:02 Patient Weight : 211.64 lbs 12:43:26 Lab Result : eGFR NONAFRICAN 78 ml/min 12:43:26 Lab Result : Hemoglobin 16.2 g/dl 12:43:26 Lab Result : BUN 19 mg/dl 12:43:26 Lab Result : Creatinine 1 mg/dl 12:43:31 Diagnostic Cath Status : Elective 12:43:58 Procedure Status Cardioversion. 12:44:09 Tal Michelle RN sent for patient. Start room use. 12:44:11 Time tracking: Regular hours (M-F 7:00 - 5:00) 12:44:15 Plan of Care:Hemodynamics will remain stable., Cardiac rhythm will remain stable., Comfort level will be maintained., Respiratory function will remain adequate., Patient/ family verbilizes understanding of procedure., Procedure tolerated without complication., Recovers from procedure without complications.. 12:56:47 Patient received from Pre/Post Procedure Room to CCL 2 Alert and oriented. Tansferred to table in Supine position. 12:56:51 Signed procedure consent form obtained from patient. 12:56:52 Warm blankets applied, and alice hugger turned on for patient comfort. 12:56:52 Correct patient and procedure confirmed by team. 12:56:53 ECG and BP/O2 sat monitors applied to patient. 12:56:53 Vital chart was started 12:56:57 Baseline sample Acquired. 12:57:05 Rhythm: atrial fibrillation 12:57:08 Full Disclosure recording started 12:57:15 H&P Date Dictated: 05/11/2020 Within 30 days and on chart., H&P Addendum completed by physician on day of procedure. (MUST COMPLETE FOR ALL OUTPATIENTS). 12:57:16 Pre-procedure instructions explained to patient. 12:57:17 Pre-op teaching completed and patient verbalized understanding. 12:57:19 Family in patients room. 12:57:20 Patient NPO since Midnight. 12:57:23 Is the patient allergic to Iodine/contrast media? No. 12:57:24 Was the patient premedicated? No 12:57:25 Is patient on blood thinner?Yes 12:57:28 ACC The patient was administered the following blood thiners within the last 24 hours: Eliquis 12:57:31 Patient diabetic? No. 12:58:11 Previous problem with sedation/anesthesia? Yes takes a long time to wake up 12:58:14 Snore? Yes 12:58:15 Sleep apnea? No 12:58:16 Deviated septum? No 12:58:16 Opens mouth fully? Yes 12:58:17 Sticks out tongue? Yes 12:58:20 Airway obstruction? No ? 12:58:22 Dentures? No ? 12:58:25 Pre procedure: right dorsailis pedis pulse 2+ Normal; easily identifiable; not easily obliterated 12:58:28 Pre procedure: left dorsailis pedis pulse 2+ Normal; easily identifiable; not easily obliterated 12:58:31 Patient pain scale 0/10 ?. 12:58:55 IV patent on arrival in left forearm with 0.9% NaCl at [facility]. 12:58:58 Lab results completed and on chart. 12:59:04 Alarms reviewed by R. N. 12:59:05 Sharps counted by scrub and verified by R.N. 13:00:57 Oxygen 2 l/min etCO2 Nasal cannula was administered by Tal Michelle RN; used for procedure; Verbal order read back and verified. 13:01:05 Refer to Anesthesia Notes for Sedation Medications was administered by Tal Michelle RN; ; Verbal order read back and verified. 13:04:13 Georgia Garcia CRNA present and monitoring patient for TIVA. 13:04:16 Quick combo pads placed on patients chest and back. 13:04:19 Defibrillator synced and charged to 200 Joules. 13:05:06 Physician arrived 13:05:06 --------ALL STOP TIME OUT------ 13:05:07 Final Timeout: patient, procedure, and site verified with staff and physician. All members of the team are in agreement. 13:05:18 Fire Safety Assessment: C--Open oxygen or nitrous oxide is being used., E--There are other possible contributors. 13:05:47 Sedation plan: TIVA Medication:Propofol 13:06:05 Procedure started. 13:06:45 Shock delivered. 13:07:18 Patient cardioverted to sinus bradycardia. 13:10:03 Procedure ended.(Physican Out) 13:10:46 Post procedure rhythm: sinus bradycardia 13:11:07 Estimated blood loss: 0 ml 13:11:09 Post procedure instruction explained to patient.Patient verbalizes understanding. 13:11:09 Patient needs reinforcement of post procedure teaching. 13:11:32 Procedure type changed to Cath procedure, Diagnostic procedure, Cardioversion External 13:11:32 Procedure and supply charges have been captured, reviewed, submitted and are correct. 13:11:37 Procedure Complication : No complications 13:11:39 Vital chart was stopped 13:11:48 Operative report dictated upon procedure completion. 13:11:49 See physician's report for complete and final results. 13:11:50 Report given to Pre/Post Procedure Room. 13:11:52 Report given to Pre/Post Procedure Room. 13:11:55 Procedure ended. 13:11:55 Full Disclosure recording stopped 13:12:00 End room use (Document Last) 13:13:10 End room use (Document Last) 13:14:12 End room use (Document Last) Signature Audit [place] Stage Time Signature Unsigned Intra-Procedure 05/11/2020 Dee Morataya 1:13:10 PM RT(R) Intra-Procedure 05/11/2020 Tal Michelle RN 1:14:12 PM Intra-Procedure 05/11/2020 Deon Cerna MD 1:16:46 PM Signatures Performing Physician : Signature : Deon Cerna MD Date : Time : Monitor : Dee Morataya RT Signature : Date : Time : Nurse : Tal Michelle RN Signature : Date : Time : [address] [place] [address]
[2020-05-11] MEDS ORDERED: LISINOPRIL10 MG PO (11:52)
[2020-05-11] MEDS ORDERED: BETAPACE 120 M120 MG PO (11:53)
[2020-05-11] MEDS ORDERED: DICLOFENAC SODI50 MG PO (11:55)
[2020-05-11 12:09] VITALS: BP 120/81; Ht 182.9 cm; Wt 96.7 kg
[2020-05-11 12:16] LABS: BASOPHILS 0.6 % (0-2); EOSINOPHILS 0.9 % (0-7); HEMATOCRIT 48.4 % (42.0-54.0); HEMOGLOBIN 16.2 g/dL (13.5-17.5); IMMATURE GRANULOCYTES 0.6 % (0-5); LYMPHOCYTES 32.1 % (15-50); MCH 30.8 pg (26.0-34.0); MCHC 33.5 g/dL (31.0-37.0); MEAN PLATELET VOLUME 9.6 fL (7.4-10.4); MONOCYTES 15.4 % (2-11); NEUTROPHILS 50.4 % (40-80); PLATELET COUNT 260 10x3/uL (130-400); RBC 5.26 10x6/uL (4.20-6.10); RDW 13.3 % (11.5-14.5); WBC 5.4 10x3/uL (4.8-10.8)
[2020-05-11 12:26] LABS: CALC OSMOLALITY 279 mosm/kg (275-300); CALCIUM 8.6 mg/dL (8.5-10.1); CARBON DIOXIDE 25.1 mmol/L (21.0-32.0); CHLORIDE - SERUM 107 mmol/L (98-107); GLUCOSE 91 mg/dL (74-106); POTASSIUM - SERUM 4.5 mmol/L (3.5-5.1); SODIUM 139 mmol/L (136-145); UREA NITROGEN 19 mg/dL (7-18); eGFR NON AFRICAN AMERICAN 78 mL/min (90-120)
--- NOTE | 2020-05-11 13:20 | NUR ---
PT REC'D TO ROOM 10 VIA STRETCHER FROM PRIMARY CLINICIAN. MONITORS ESTAB, AT BS. SEE JEWEL GRINDER. ALARMS ON AND C/L IN REACH.
--- NOTE | 2020-05-11 13:35 | NUR ---
SBP 84, MAP 66. PT AWAKENS EASILY, DENIES PAIN OR NEEDS. CM -SB, NO ECTOPY NOTED. ALARMS ON AND C/L IN REACH.
[2020-05-11 13:52] LABS: INR 0.97 (0.85-1.17); PROTIME 12.9 SECONDS (11.6-15.0)
--- NOTE | 2020-05-11 14:05 | NUR ---
CM - SB, HR 47, NO ECTOPY NOTED. PT DENIES PAIN OR NEEDS, "STILL A LITTLE DROWSY". ALARMS ON AND C/L IN REACH.
--- NOTE | 2020-05-11 14:17 | NUR ---
DR RIZZO IN TO UPDATE PT AND HIS . CM - SB/SINUS ARRYTHMIA. B/P WNL.
--- NOTE | 2020-05-11 14:33 | NUR ---
ALL D/C INSRUCTIONS REVIEWED WITH PT AND HIS . UNDERSTANDING VERBALIZED. PIV D/C'D INTACT AND PT ALLOWED UP TO GET DRESSED AND GO TO BR INDEPENDENTLY.
--- NOTE | 2020-05-11 14:40 | NUR ---
PT D/C'D VIA WC TO PRIVATE VEHICLE WITH ALL PAPERWORK AND BELONGINGS.
== END 2020-05-11 14:40 | disposition home or self-care (01) ==
LOC: D.CATH 11:35
PROVIDERS: ATTEND Internal Medicine Cardiovascular Disease
DX: I48.91 Unspecified atrial fibrillation (principal); I10 Essential (primary) hypertension